=== PATIENT | male | born 1990 | race Caucasian/White ===

== ENCOUNTER 2016-10-26 22:49 | Emergency (ER) | payer OTHER ==
[~2016-10-26] VITALS: Ht 180.3 cm; Wt 127.0 kg
[~2016-10-26 22:49] MED LIST: EFFEXOR XR75 M1 PO; LITHIUM CARBON300 M4 PO; NEXIUM20 M1 PO; OLANZAPINE7.5 M1 PO; PERPHENAZINE4 M1 PO; RISPERIDONE2 MG PO; STRATTERA PO
[2016-10-26 22:53] VITALS: BP 118/74
--- NOTE | 2016-10-26 23:24 | ED NECK/BACK PAIN COMPLAINT ---
History of Present Illness General Chief Complaint: Lower Extremity Problems Stated Complaint: RIGHT SIDED LE PAIN AND NUMBNESS Source: patient, family Exam Limitations: no limitations Vital Signs & Intake/Output Vital Signs & Intake/Output Vital Signs Date Time Temp Pulse Resp B/P B/P Pulse O2 O2 Flow FiO2 Mean Ox Delivery Rate 10/26 2319 Room Air 10/26 2253 98.2 99 18 118/74 100 Room Air Allergies Coded Allergies: NO KNOWN ALLERGIES (07/31/15) Reconcile Medications Atomoxetine HCl (Strattera) 60 MG CAPSULE 1 TAB PO QAM DEPRESSION (Reported) Cyclobenzaprine HCl 10 MG TABLET 1 TAB PO Q8P PAIN OR SPASM Esomeprazole Magnesium (Nexium) 20 MG CAPSULE.DR 1 TAB PO QAM GERD (Reported) [place] Carbonate 300 MG CAPSULE 1 TAB PO QAM DEPRESSION (Reported) [place] Carbonate 300 MG CAPSULE 2 TAB PO QPM DEPRESSION (Reported) Methylprednisolone. (Medrol) 4 MG TAB.DS.PK 1 DP PO AD SCIATICA 6 on day 1 then reduce by one tablet daily until gone Olanzapine 7.5 MG TABLET 1 TAB PO QPM SCHIZOPHRENIA (Reported) Oxycodone HCl/Acetaminophen (Percocet 5-325 MG Tablet) 5 MG-325 MG TABLET 1-2 TAB PO Q6P PRN PAIN Perphenazine 4 MG TABLET 2 TAB PO QPM ANXIETY (Reported) Risperidone 2 MG TABLET 1 TAB PO BID MENTAL HEALTH (Reported) Venlafaxine HCl (Effexor XR) 75 MG CAP.ER.24H 1 TAB PO QAM SCHIZOPHRENIA ( Reported) Triage Note: RECEIVED 26 YO MALE C/O PAIN TO BACK OF RIGHT THIGH AND BACK OF KNEE RADIATING TO LOWER EXTREMITY X 3 MONTHS. PT SEEN PMD THIS THURSDAY AND XRAY DONE. DX WITH POSSIBLE SIATICA. PT COMIES TO ED TONITE FOR SEVERE WORSENING PAIN Triage Nurses Notes Reviewed? yes HPI: Patient has been having back pain beginning down his right leg for the past 2 weeks. Patient was seen by his primary care physician and was diagnosed with sciatica. Patient has been going to physical therapy. On Thursday patient states that his right foot and his right thigh felt like they were going numb. The numbness continues and tonight the pain was 8 out of 10 and throbbing in nature. Patient denies any aggravating or mitigating factors. The pain radiates as noted above. He denies incontinence of bowel or bladder. There is no weakness or difficulty walking. Past History Travel History Traveled to [place] past 21 day No Medical History Any Pertinent Medical History? see below for history Neurological: NONE EENT: NONE Cardiovascular: NONE Respiratory: NONE Gastrointestinal: NONE Hepatic: NONE Renal: NONE Musculoskeletal: NONE Psychiatric: "HEARING VOICES" psychosis Endocrine: NONE Blood Disorders: NONE Cancer(s): NONE ACCOUNTS RECEIVABLE COLLECTOR/Reproductive: NONE Tetanus Vaccine: 05/14/11 Surgical History Surgical History: non-contributory, N Psychosocial History Who do you live with Family What is your primary language Danish Tobacco Use: Never used ETOH Use: denies use Illicit Drug Use: denies illicit drug use Family History Hx Contributory? No Review of Systems Review of Systems Constitutional: Reports: no symptoms. Ears, Nose, Throat, Mouth: Reports: no symptoms. Respiratory: Reports: no symptoms. Cardiovascular: Reports: no symptoms. Gastrointestinal/Abdominal: Reports: no symptoms. Musculoskeletal: Reports: see HPI, back pain. Neurological/Psychological: Reports: see HPI. Physical Exam Physical Exam General Appearance: well developed/nourished, alert, awake, anxious, mild distress Head: atraumatic, normal appearance Eyes: Bilateral: PERRL, EOMI. Ears, Nose, Throat, Mouth: hearing grossly normal, moist mucous membrane Neck: normal inspection, supple, full range of motion, no midline tenderness Respiratory: normal breath sounds, chest non-tender, no respiratory distress, lungs clear Cardiovascular: regular rate/rhythm, normal peripheral pulses Gastrointestinal: normal bowel sounds, soft, non-tender, no organomegaly Back: normal inspection, normal range of motion, no vertebral tenderness Extremities: non-tender, normal range of motion Straight Leg Raising: Right: Negative. Left: Negative. Sensory: Medial Le: L4R, L4L. Top of Foot: 1: L5R, L5L. Sole of Foot: 1: SIR, KRISHAN. Motor: Deficit L4 Right: No Deficit L4 Left: No Deficit L5 Right: No Deficit L5 Left: No Deficit S1 Right: No Deficit S1 Right: No DTR: Patellar: 3: L4 Right, L4 Left. Achilles: 2: S1 Right, S1 Left. Neurologic/Psych: no motor/sensory deficits, awake, alert, oriented x 3, normal gait, normal mood/affect Progress Differential Diagnosis: herniated disc, myofascial strain, sciatica Plan of Care: Current Medications Sig/[place] Start time Last Medication Dose Stop Time Status Admin Cyclobenzaprine HCl 10 MG ONCE ONE 10/26 2329 UNVr (Flexeril 10MG Tab) 10/26 2330 Oxycodone/ 1 TAB ONCE ONE 10/26 2329 UNVr Acetaminophen 10/26 2330 (Percocet) Prednisone 60 MG ONCE ONE 10/26 2329 UNVr 10/26 2330 Departure Departure Disposition: HOME OR SELF CARE Condition: Stable Clinical Impression Primary Impression: Sciatica Qualifiers: Laterality: right Qualified Code: M54.31 - Sciatica, right side Referrals: UNKNOWN (PCP/Family) Additional Instructions: FOLLOW UP WITH YOUR DOCTOR TAKE MEDS PRESCRIBED RETURN FOR ANY CONCERNS Departure Forms: Customer Survey General Discharge Information Prescriptions: Current Visit Scripts Methylprednisolone. (Medrol) 1 DP PO AD #1 DP 6 on day 1 then reduce by one tablet daily until gone Cyclobenzaprine HCl 1 TAB PO Q8P #20 TAB Oxycodone HCl/Acetaminophen (Percocet 5-325 MG Tablet) 1-2 TAB PO Q6P PRN PAIN #12 TAB
[2016-10-26] MEDS ORDERED: PERCOCET 5-3251 EACH PO (23:27)
[2016-10-26] MEDS ORDERED: CYCLOBENZAPRINE10 M1 PO (23:27)
[2016-10-26] MEDS ORDERED: MEDROL4 M2 PO (23:27)
== END 2016-10-26 23:35 ==
LOC: ERH 22:49
DX: M54.41 Lumbago with sciatica, right side (principal)